=== PATIENT | male | born 1965 | race Caucasian/White ===

== ENCOUNTER → 2017-02-28 | Outpatient (CLI) | payer OTHER ==
[~2017-02-28] MED LIST: CIPRO 500MG TA500 MG PO; NORCO 325 MG-7.1 TAB PO; PRINIVIL10 MG PO; ZOCOR 80MG80 MG PO
== END ==
LOC: COL.RAD 11:54
DX: M48.02 Spinal stenosis, cervical region (principal); M50.121 Cervical disc disorder at C4-C5 level with radiculopathy; M50.123 Cervical disc disorder at C6-C7 level with radiculopathy; M47.22 Other spondylosis with radiculopathy, cervical region

== ENCOUNTER 2020-03-24 06:41 | Day surgery (SDC) | payer BC ==
[~2020-03-24] VITALS: Ht 172.7 cm; Wt 108.8 kg
[~2020-03-24 06:41] MED LIST changes: +TRILIPIX 135MG PO; +[UNRECOGNIZED DRUG - OTHER] PO
[2020-03-24 07:08] VITALS: BP 124/84; PULSE 75; TEMP 98.8
[2020-03-24] MEDS ORDERED: LIPITOR20 MG PO (07:12)
[2020-03-24 08:10] VITALS: BP 99/70; PULSE 74
--- NOTE | 2020-03-24 08:10 | NUR ---
TO RM 3 PER CART FROM ENDOSCOPY. ALERT ORIENTED X3, TALKING WITH STAFF. AMBULATED TO RECLINER WITH ASSIST AND TOLERATED WELL. DR ATWOOD INTO TALK WITH PATIENT. REFUSED TO EAT OR DRINK ANYTHING.
[2020-03-24 08:25] VITALS: BP 103/71; PULSE 72
--- NOTE | 2020-03-24 08:25 | NUR ---
PATIENT ASKING WHEN HE CAN GO HOME. CONTINUES TO REFUSE ANYTHING TO EAT/DRINK. FRIEND DONAVAN CALLED TO HEAD OF HISTORY PATIENT.
--- NOTE | 2020-03-24 08:30 | NUR ---
RECEIVED DISCHARGE INSTRUCTIONS AND VERBALIZED UNDERSTANDING. DISCONTINUED IV AND INT- CATHETER INTACT. PATIENT GETTING DRESSED. INFORMED PATIENT THAT HIS RIDE SAID SHE WOULD BE HERE IN 15-20MINUTES.
--- NOTE | 2020-03-24 08:50 | NUR ---
PATIENT ASK WHY HE HAD TO USE A WC. I EXPLAINED IT WAS FOR HIS SAFETY DUE TO THE SEDATION HE HAD. DISCHARGED PER WC BY NURSING STAFF TO PRIVATE CAR IN CARE OF DONAVAN.
== END 2020-03-24 09:00 | disposition home or self-care (01) ==
LOC: SDCO 06:41
DX: Z12.11 Encounter for screening for malignant neoplasm of colon (principal); Z80.0 Family history of malignant neoplasm of digestive organs; K57.30 Diverticulosis of large intestine without perforation or abscess without bleeding; E78.5 Hyperlipidemia, unspecified; I10 Essential (primary) hypertension; Z20.828 Contact with and (suspected) exposure to other viral communicable diseases; Z79.899 Other long term (current) drug therapy; Z87.891 Personal history of nicotine dependence
CPT/HCPCS: J2704; J7030